=== PATIENT | male | born 1995 | race Two or more races ===

== ENCOUNTER 2019-01-28 11:14 | Inpatient (IN) | payer OTHER ==
[~2019-01-28] VITALS: Ht 172.7 cm; Wt 74.0 kg
[~2019-01-28 11:14] MED LIST: DEXAMETHASONE 4 MG/ML, 1ML ONE; ONDANSETRON 2MG/ML, 2ML ONE; PROPOFOL 10 MG/ML, 20ML ONE; ROCURONIUM 10MG/ML,5ML ONE
--- NOTE | 2019-01-28 11:41 | NUR ---
pt to CT & Xray accompanied by police officers
[2019-01-28] MEDS ORDERED: L.E.T SOLUTION TP ONE ×2 (12:30→13:36)
--- NOTE | 2019-01-28 12:54 | NUR ---
Awaiting MD Neville evaluation
[2019-01-28] MEDS ORDERED: DOCUSATE 100 MG CAPSULE PO PRN (14:00)
[2019-01-28] MEDS ORDERED: ACETAMINOPHEN 325 MG TABLET PO PRN ×2 (14:00→20:30)
[2019-01-28] MEDS ORDERED: ONDANSETRON 2MG/ML, 2ML IVPush PRN (14:00)
[2019-01-28] MEDS ORDERED: morphine SULFATE 10 MG/ML, 1ML IVPush PRN (14:00)
--- NOTE | 2019-01-28 14:09 | NUR ---
PATIENT IN RESTING IN BED, NO SIGNS OF ACUTE DISTRESS. PROVIDER AT BEDSIDE, PREPPING FOR SUTURES ON RIGHT EAR. WILL CONTINUE TO MONITOR.
[2019-01-28] MEDS ORDERED: BALANCED SALT OPHTH IRRIG SOLN 18ML ONE (14:49)
[2019-01-28] MEDS ORDERED: OXYMETAZOLINE NASAL SPRAY 0.05%, 15ML ONE (14:49)
[2019-01-28] MEDS ORDERED: LIDOCAINE 1%-EPI 1:100K, 20ML ONE (14:49)
[2019-01-28] MEDS ORDERED: FENTANYL PF 250 MCG/5ML ONE (15:33)
[2019-01-28] MEDS ORDERED: MIDAZOLAM 1 MG/ML, 2ML ONE (15:33)
[2019-01-28] MEDS ORDERED: PHENYLEPHRINE NASAL 0.5%, 15ML SPRAY ONE ×2 (15:35→15:36)
[2019-01-28] MEDS ORDERED: SUGAMMADEX 200 MG/2 ML IVPush ONE (17:10)
[2019-01-28] MEDS ORDERED: MEPERIDINE/PF 50 MG/ML ONE (17:16)
[2019-01-28] MEDS ORDERED: HALOPERIDOL 5 MG/ML IV PRN (17:30)
[2019-01-28] MEDS ORDERED: HYDROmorphone 2 MG/ML, 1ML IVPush PRN (17:30)
[2019-01-28] MEDS ORDERED: MEPERIDINE/PF 25MG/ML,1ML IVPush PRN (17:30)
[2019-01-28] MEDS ORDERED: PROMETHAZINE 25 MG/ML, 1ML IV PRN (17:30)
[2019-01-28] MEDS ORDERED: FENTANYL PF 100 MCG/2ML IV PRN (17:30)
[2019-01-28] MEDS ORDERED: OXYcodone 5 MG/5 ML ORAL.SOL UDC PO PRN (17:30)
[2019-01-28] MEDS ORDERED: PROMETHAZINE 25 MG/ML, 1ML ONE (17:50)
[2019-01-28 18:40] VITALS: BP 128/77
[2019-01-28] MEDS ORDERED: MORPHINE SULFATE 4 MG/ML, 1ML IV PRN (20:30)
[2019-01-28] MEDS ORDERED: CEFAZOLIN 2,000 MG in SODIUM CHLORIDE 0.9% 50 ML IV ONE (20:30)
[2019-01-28] MEDS ORDERED: MORPHINE SULFATE 4 MG/ML, 1ML IVPush PRN (20:30)
[2019-01-28] MEDS: LACTATED RINGERS 1,000 ML IV SCH (20:38)
[2019-01-28 20:39] VITALS: BP 128/77
[2019-01-28] MEDS: AMOXICILLIN/CLAV 875-125MG TABLET PO SCH (21:28)
[2019-01-28] MEDS: OXYcodone IR 5MG TABLET PO PRN (21:29)
[2019-01-28] MEDS: ACETAMINOPHEN 500 MG TABLET PO PRN (21:48)
[2019-01-28 22:19] LABS: AMPHETAMINE SCREEN, URINE Negative (Negative); BARBITURATE SCREEN, URINE Negative (Negative); BENZODIAZEPINE SCREEN, URINE Positive (Negative); CANNABINOID SCREEN, URINE Negative (Negative); COCAINE SCREEN, URINE Negative (Negative); METHADONE SCREEN, URINE Negative (Negative); OPIATE SCREEN, URINE Negative (Negative)
[2019-01-28 23:45] VITALS: BP 123/86
[2019-01-29] MEDS: ACETAMINOPHEN 500 MG TABLET PO PRN (03:00)
[2019-01-29] MEDS: OXYcodone IR 5MG TABLET PO PRN ×3 (03:00→13:26)
[2019-01-29 03:48] VITALS: BP 124/69
[2019-01-29] MEDS: LACTATED RINGERS 1,000 ML IV SCH (06:12)
[2019-01-29 07:52] VITALS: BP 116/72
[2019-01-29] MEDS: AMOXICILLIN/CLAV 875-125MG TABLET PO SCH (08:49)
[2019-01-29 13:30] VITALS: BP 110/68
[2019-01-29] MEDS ORDERED: AMOX1TAB12 PO (14:52)
[2019-01-29] MEDS ORDERED: ACET325T26 PO (14:52)
== END 2019-01-29 16:00 | disposition home or self-care (01) | DRG 132 ==
LOC: ED 13:44 → EDIP 13:45 → ED 13:58 → 4NE 19:36
PROVIDERS: ADMIT Internal Medicine; ATTEND Internal Medicine
PROC: 09Q0XZZ Repair Right External Ear, External Approach (ICD-10-PCS; 2019-01-28)
PROC: 0NSV04Z Reposition Left Mandible with Internal Fixation Device, Open Approach (ICD-10-PCS; principal; 2019-01-28 15:00)
DX: S02.66XB Fracture of symphysis of mandible, initial encounter for open fracture (principal); S00.81XA Abrasion of other part of head, initial encounter; S02.40DA Maxillary fracture, left side, initial encounter for closed fracture; S60.311A Abrasion of right thumb, initial encounter; Y93.89 Activity, other specified; Y92.89 Other specified places as the place of occurrence of the external cause; Y99.8 Other external cause status; Y08.89XA Assault by other specified means, initial encounter
CPT/HCPCS: 70486; 80307; 93005; 99285; C1713; G0378; J0690; J1100; J2175; J2250; J2405; J2550; J2704; J3010; J3490; J7120